=== PATIENT | female | born 1945 | race Caucasian/White ===

== ENCOUNTER 2018-02-05 14:58 | Inpatient (IN) ==
[2018-02-05] MEDS ORDERED: amLODIPine 5 MG TABLET PO SCH (18:00)
[2018-02-05] MEDS ORDERED: Lisinopril 20 MG TABLET PO SCH (18:00)
[2018-02-05] MEDS: *HR* Rivaroxaban 10 MG TABLET PO SCH (18:14)
[2018-02-05] MEDS: FLUoxetine 20 MG CAPSULE PO SCH (19:31)
[2018-02-05] MEDS: *HR* HYDROcodone/Acet 5/325 mg TABLET PO PRN (21:34)
[2018-02-06] MEDS: *HR* HYDROcodone/Acet 5/325 mg TABLET PO PRN ×3 (06:56→21:42)
[2018-02-06] MEDS: Cholecalciferol (D-3) 1,000 UNIT TABLET PO SCH (08:39)
--- NOTE | 2018-02-06 11:12 | Internal Med History&Physical ---
Date of Encounter: 02/06/18 Time of Encounter: 10:40 Assessment and Plan (1) Status post total hip replacement, right Current visit: No Status: Acute She will have physical therapy and occupational therapy evaluations with ongoing intervention. Xarelto has been prescribed for DVT prophylaxis. (2) CKD (chronic kidney disease) stage 3, GFR 30-59 ml/min Current visit: Yes Status: Chronic Hold ACEI and monitor renal indices. (3) Edema Current visit: Yes Status: Chronic Hold amlodipine and give low-dose diuretic. Qualifiers: Edema type: unspecified Qualified Code(s): R60.9 - Edema, unspecified (4) HTN (hypertension) Current visit: No Status: Chronic Hold ACEI and Norvasc as above. Continue Coreg. Qualifiers: Hypertension type: essential hypertension Qualified Code(s): I10 - Essential (primary) hypertension (5) Hypothyroid Current visit: No Status: Chronic Check TSH in a.m. Qualifiers: Hypothyroidism type: unspecified Qualified Code(s): E03.9 - Hypothyroidism , unspecified (6) Acute blood loss anemia Current visit: No Status: Acute Recheck labs in a.m. Internal Medicine - H&P: HPI Chief complaint: Hip replacement Admitted From: Hospital to Hospital Transfer Plans for Post Hospital Care: Home History of present illness: Ms. Dowling is a 73 year old female who underwent elective right total hip replacement with robotic assistance at [facility] 02/02/2018. Her postop course was remarkable for anemia requiring blood transfusion. She was transferred to [facility] swing bed for ongoing therapy and care needs prior to returning to independent living at home. Her orthopedic history is significant for previous bilateral rotator cuff surgeries (right 2, left 1) and bilateral foot surgeries. She has history of vitamin D deficiency. She denies gout or other bone joint or muscle disorders. Past Med Surg Social Fam HX - Past Medical History Medical history: non-contributory, hypertension, osteoporosis Psychiatric history: anxiety - Past Surgical History Surgical History: cholecystectomy, hip replacement, hysterectomy, other Additional surgical history: left foot- Toothpic injury - Social History Smoking Status: Never smoker Smokeless Tobacco Status: No Alcohol use: none Drug use: none - Family History Father Hx Family Endocrine Disorder: Yes Internal Medicine - H&P: Meds Amlodipine Besylate 10 mg PO QPM 05/21/16 [History] Benazepril HCl [Lotensin] 40 mg PO QPM 05/21/16 [History] Carvedilol 12.5 mg PO BID 05/21/16 [History] Ergocalciferol (VITAMIN D2) [Vitamin D2] 50,000 unit PO BECKER 05/21/16 [History] FLUoxetine HCl [Prozac] 20 mg PO HS 05/21/16 [History] Levothyroxine [Synthroid] 50 mcg PO DAILY 05/21/16 [History] HYDROcodone/Acet 5/325 mg [[place] 5-325 mg] 1 tab PO Q6H PRN 7 Days #28 tab 02/01 [Rx] Rivaroxaban [Xarelto] 10 mg PO DAILY 10 Days #10 tablet 02/01/18 [Rx] 3 Allergy/AdvReac Type Severity Reaction Status Date / Time aspirin Allergy Rash Verified 10/17/16 13:14 celecoxib [From Celebrex] Allergy Rash Verified 10/17/16 13:14 cephalexin [From Keflex] Allergy Rash Verified 10/17/16 13:14 ciprofloxacin [From Cipro] Allergy Hives Verified 10/17/16 13:14 clindamycin Allergy Rash Verified 02/02/18 10:26 meloxicam [From Mobic] Allergy Rash Verified 10/17/16 13:14 metronidazole [From Flagyl] Allergy Rash Verified 10/17/16 13:14 nabumetone [From Relafen] Allergy Rash Verified 10/17/16 13:14 Penicillins Allergy Rash Verified 10/17/16 13:14 Sulfa (Sulfonamide Allergy Rash Verified 10/17/16 13:14 Antibiotics) tramadol Allergy Rash Verified 02/02/18 10:27 Iodinated Contrast- Oral and AdvReac Flushing Verified 03/26/17 09:18 IV Dye meperidine [From Demerol] AdvReac Redness of Verified 10/17/16 13:14 Skin morphine AdvReac Redness of Verified 10/17/16 13:14 Skin Oxycodone [From OxyContin] AdvReac Itching Verified 10/17/16 13:14 All Systems PM: A 10-system review of systems was performed and is negative for pertinent findings except as documented above in the HPI. Review of systems: Gen.: She states her weight has increased slightly in the past few weeks Cardiovascular: She has history of hypertension but denies SC heart failure angina DVT or pulmonary embolus. She reports she has edema of her legs. Respiratory: She is a lifelong nonsmoker and has no known chronic lung disease. GI: She has had cholecystectomy. She denies disorders of her liver or exocrine pancreas : She has chronic kidney disease and follows with a qa auditor. She had kidney stones in the past on one occasion without recurrence. She denies other kidney or bladder disorders. Neurologic: She denies large distribution strokes or seizures. Endocrine: She has hypothyroidism and history of borderline hyperlipidemia. She denies diabetes. Hematology/oncology: She denies blood disorders or cancers. She had anemia postoperatively with blood transfusion as per above. Psychiatric: She has depression but denies anxiety other mental health issues [place] skeletal: As per history of present illness - Constitutional Vitals: Temp Pulse Resp BP Pulse Ox 98.4 F 68 15 127/69 94 02/06/18 06:51 02/06/18 06:51 02/06/18 06:51 02/06/18 06:51 02/06/18 06:51 Exam: Gen.: She is a well-developed overweight female resting comfortably in bed who appears in no acute distress HEENT: Head is atraumatic and normocephalic. Eyes: EOMI. There is no scleral icterus. Mouth: Mucosa is moist. Neck: There is no thyromegaly or adenopathy noted. Heart: Regular without murmurs gallops or ectopics Lungs: No wheezes or crackles are heard. Abdomen: Soft and nontender. No masses or guarding are noted. Extremities: She has 2+ edema of the left leg and 2-3+ edema of the right leg. A wedge abductor pillow is in place. She has DJD changes of her hands. Neurologic: Mental status: She is talkative and a good historian. Cranial nerves: Smile is symmetric. Forehead wrinkles bilaterally. Tongue protrudes midline. EOMI. Motor: There is no pronator drift. Cerebellar: Finger to nose is intact bilaterally. Skin: Warm and dry
[2018-02-06] MEDS: Bumetanide 1 MG TABLET PO SCH (15:48)
[2018-02-06] MEDS: *HR* Rivaroxaban 10 MG TABLET PO SCH (15:50)
[2018-02-06] MEDS: FLUoxetine 20 MG CAPSULE PO SCH (21:41)
[2018-02-07 05:42] LABS: Basophils % 0.4 %; Eosinophils # 0.2 K/mcL (0.0-0.6); Hematocrit 29.5 % (35.3-44.9); Hemoglobin 9.6 g/dL (11.5-15.4); Immature Granulocytes % 0.5 % (0-4); Lymphocytes # 1.7 K/mcL (0.6-4.6); Lymphocytes % 21.1 %; Mean Corpuscular HGB Conc 32.5 g/dL (31.6-35.5); Mean Corpuscular Hemoglobin 30.4 pg (28.0-33.3); Mean Corpuscular Volume 93.4 fL (83.0-100.0); Mean Platelet Volume 9.8 fL (9.4-12.4); Monocytes # 0.7 K/mcL (0.0-1.3); Monocytes % 8.1 %; Neutrophils # 5.4 K/mcL (1.6-8.9); Platelet Count 197 K/mcL (140-400); Red Blood Count 3.16 M/mcL (3.82-4.97); Red Cell Distribution Width 13.5 % (11.5-14.5); Segmented Neutrophils % 66.9 %
[2018-02-07 06:15] LABS: Thyroid Stimulating Hormone 1.637 mcIU/mL (0.340-5.600)
[2018-02-07] MEDS: Bumetanide 1 MG TABLET PO SCH (09:08)
[2018-02-07] MEDS: Cholecalciferol (D-3) 1,000 UNIT TABLET PO SCH (09:09)
[2018-02-07] MEDS: *HR* HYDROcodone/Acet 5/325 mg TABLET PO PRN ×2 (09:09→17:12)
[2018-02-07 09:55] LABS: Vitamin B12 266 pg/mL (250-1100)
[2018-02-07 10:26] LABS: Folate > 22.3 ng/mL (3.0-16.0)
[2018-02-07] MEDS: *HR* Rivaroxaban 10 MG TABLET PO SCH (17:05)
--- NOTE | 2018-02-07 19:49 | Internal Med Progress Note ---
Date of Encounter: 02/07/18 Time of Encounter: 19:40 - Assessment and plan (1) Status post total hip replacement, right Current Visit: No Status: Acute Assessment and plan: February 07. Continue PT and OT with Xarelto. (2) CKD (chronic kidney disease) stage 3, GFR 30-59 ml/min Current Visit: Yes Status: Chronic Assessment and plan: February 07. Hold ACEI and monitor renal indices. (3) Edema Current Visit: Yes Status: Chronic Assessment and plan: February 07. Hold amlodipine and continue low-dose diuretic. Qualifiers: Edema type: unspecified Qualified Code(s): R60.9 - Edema, unspecified (4) HTN (hypertension) Current Visit: No Status: Chronic Assessment and plan: February 07. Continue Coreg. Qualifiers: Hypertension type: essential hypertension Qualified Code(s): I10 - Essential (primary) hypertension (5) Hypothyroid Current Visit: No Status: Chronic Assessment and plan: February 07. TSH normal. Continue present dose Synthroid. Qualifiers: Hypothyroidism type: unspecified Qualified Code(s): E03.9 - Hypothyroidism , unspecified (6) Acute blood loss anemia Current Visit: No Status: Acute Assessment and plan: February 07. Anemia testing shows iron 18, transferrin saturation 8%, transferrin 166, ferritin 136, B12 266, and folate > 22.3. Start ferrous sulfate with vitamin C. - Subjective Interval history: February 07. She has no new complaints. She ambulated in the hallway earlier today. - Constitutional Vitals: Temp Pulse Resp BP Pulse Ox 99.1 F 76 18 156/65 95 02/07/18 19:04 02/07/18 19:04 02/07/18 19:04 02/07/18 19:04 02/07/18 19:04 Exam: She is resting comfortably in bed and appears in no acute distress. Her affect is bright and cheerful. Extremities show slightly less edema bilaterally than yesterday. I reviewed her medications and lab results. Internal Medicine: Result - Labs CBC & Chem 7: 02/07/18 04:39 Labs: Short CBC 02/07/18 Range/Units 04:39 WBC 8.0 (4.3-11.1) K/mcL Hgb 9.6 L (11.5-15.4) g/dL Hct 29.5 L (35.3-44.9) % Plt Count 197 (140-400) K/mcL Neutrophils # 5.4 (1.6-8.9) K/mcL Consult Discharge Plan - Plan Referrals: Katerine Canales CNP [Primary Care Provider] - 1 week
[2018-02-07] MEDS: FLUoxetine 20 MG CAPSULE PO SCH (21:39)
[2018-02-08] MEDS: Ascorbic Acid 500 MG TABLET PO SCH ×2 (06:45→08:20)
[2018-02-08] MEDS: *HR* HYDROcodone/Acet 5/325 mg TABLET PO PRN ×2 (06:45→17:31)
[2018-02-08] MEDS: Cholecalciferol (D-3) 1,000 UNIT TABLET PO SCH (08:20)
[2018-02-08] MEDS ORDERED: Bumetanide 1 MG TABLET PO SCH (09:00)
--- NOTE | 2018-02-08 14:08 | Internal Med Progress Note ---
Date of Encounter: 02/08/18 Time of Encounter: 14:00 - Assessment and plan (1) Status post total hip replacement, right Current Visit: No Status: Acute Assessment and plan: February 07. Continue PT and OT with Xarelto. (2) CKD (chronic kidney disease) stage 3, GFR 30-59 ml/min Current Visit: Yes Status: Chronic Assessment and plan: February 07. Hold ACEI and monitor renal indices. February 08. Check labs in a.m. (3) Edema Current Visit: Yes Status: Chronic Assessment and plan: February 07. Hold amlodipine and continue low-dose diuretic. February 08. Increase Bumex dose. Qualifiers: Edema type: unspecified Qualified Code(s): R60.9 - Edema, unspecified (4) HTN (hypertension) Current Visit: No Status: Chronic Assessment and plan: February 07. Continue Coreg. Qualifiers: Hypertension type: essential hypertension Qualified Code(s): I10 - Essential (primary) hypertension (5) Hypothyroid Current Visit: No Status: Chronic Assessment and plan: February 07. TSH normal. Continue present dose Synthroid. Qualifiers: Hypothyroidism type: unspecified Qualified Code(s): E03.9 - Hypothyroidism , unspecified (6) Acute blood loss anemia Current Visit: No Status: Acute Assessment and plan: February 07. Anemia testing shows iron 18, transferrin saturation 8%, transferrin 166, ferritin 136, B12 266, and folate > 22.3. Start ferrous sulfate with vitamin C. February 09. Check labs in a.m. - Subjective Interval history: February 07. She has no new complaints. She ambulated in the hallway earlier today. February 08. She has no new complaints. - Constitutional Vitals: Temp Pulse Resp BP Pulse Ox 99.6 F 68 15 136/69 94 02/08/18 07:30 02/08/18 07:30 02/08/18 07:30 02/08/18 07:30 02/08/18 07:30 Exam: She is resting comfortably in bed and appears in no acute distress. Her affect is bright and cheerful. Extremities show unchanged edema. I reviewed her medications and lab results. Internal Medicine: Result - Labs CBC & Chem 7: 02/07/18 04:39 Consult Discharge Plan - Plan Referrals: Katerine Canales HANDS ASSEMBLER [Primary Care Provider] - 1 week
[2018-02-08] MEDS: *HR* Rivaroxaban 10 MG TABLET PO SCH (17:31)
[2018-02-08] MEDS: Bumetanide 1 MG TABLET PO SCH (17:35)
[2018-02-08] MEDS: FLUoxetine 20 MG CAPSULE PO SCH (21:14)
[2018-02-09 06:57] LABS: Basophils % 0.4 %; Eosinophils # 0.3 K/mcL (0.0-0.6); Eosinophils % 3.9 %; Hematocrit 29.1 % (35.3-44.9); Hemoglobin 9.5 g/dL (11.5-15.4); Immature Granulocytes % 0.5 % (0-4); Lymphocytes # 2.1 K/mcL (0.6-4.6); Mean Corpuscular HGB Conc 32.6 g/dL (31.6-35.5); Mean Corpuscular Hemoglobin 30.5 pg (28.0-33.3); Mean Corpuscular Volume 93.6 fL (83.0-100.0); Mean Platelet Volume 9.6 fL (9.4-12.4); Monocytes # 0.6 K/mcL (0.0-1.3); Monocytes % 7.3 %; Platelet Count 237 K/mcL (140-400); Red Blood Count 3.11 M/mcL (3.82-4.97); Red Cell Distribution Width 13.2 % (11.5-14.5); Segmented Neutrophils % 61.9 %
[2018-02-09 07:18] LABS: Calcium 8.4 mg/dL (8.6-10.3); Potassium 4.1 mEq/L (3.5-5.1)
[2018-02-09] MEDS: Bumetanide 1 MG TABLET PO SCH (08:46)
[2018-02-09] MEDS: Ascorbic Acid 500 MG TABLET PO SCH (08:46)
[2018-02-09] MEDS: Cholecalciferol (D-3) 1,000 UNIT TABLET PO SCH (08:46)
[2018-02-09] MEDS: *HR* Rivaroxaban 10 MG TABLET PO SCH (17:37)
[2018-02-09] MEDS: FLUoxetine 20 MG CAPSULE PO SCH (21:18)
[2018-02-10] MEDS ORDERED: Ascorbic Acid 500 MG TABLET PO SCH (08:15)
[2018-02-10] MEDS: Bumetanide 1 MG TABLET PO SCH (09:34)
[2018-02-10] MEDS: Cholecalciferol (D-3) 1,000 UNIT TABLET PO SCH (09:34)
[2018-02-10] MEDS: Ascorbic Acid 500 MG TABLET PO SCH (09:34)
[2018-02-10] MEDS ORDERED: Artificial Tears SOLN 15 ML BOTTLE BOTH EYES PRN (11:56)
[2018-02-10] MEDS ORDERED: Acetaminophen 325 MG TABLET PO PRN (15:56)
[2018-02-10] MEDS: *HR* Rivaroxaban 10 MG TABLET PO SCH (18:08)
[2018-02-10] MEDS: FLUoxetine 20 MG CAPSULE PO SCH (20:01)
[2018-02-11] MEDS: Ascorbic Acid 500 MG TABLET PO SCH (05:49)
[2018-02-11] MEDS ORDERED: Ascorbic Acid 500 MG TABLET PO SCH (06:30)
[2018-02-11 06:31] LABS: Basophils % 0.5 %; Eosinophils # 0.3 K/mcL (0.0-0.6); Eosinophils % 3.5 %; Hematocrit 32.6 % (35.3-44.9); Hemoglobin 10.6 g/dL (11.5-15.4); Immature Granulocytes % 0.5 % (0-4); Lymphocytes # 2.4 K/mcL (0.6-4.6); Lymphocytes % 28.2 %; Mean Corpuscular HGB Conc 32.5 g/dL (31.6-35.5); Mean Corpuscular Volume 92.4 fL (83.0-100.0); Mean Platelet Volume 9.2 fL (9.4-12.4); Monocytes # 0.6 K/mcL (0.0-1.3); Monocytes % 7.3 %; Neutrophils # 5.2 K/mcL (1.6-8.9); Platelet Count 326 K/mcL (140-400); Red Blood Count 3.53 M/mcL (3.82-4.97); Red Cell Distribution Width 13.1 % (11.5-14.5)
[2018-02-11 06:52] LABS: Calcium 8.9 mg/dL (8.6-10.3); Magnesium 1.6 mg/dL (1.6-2.6); Potassium 3.8 mEq/L (3.5-5.1)
[2018-02-11 07:07] LABS: Bilirubin,Urine Negative (Negative); Blood,Urine Negative (Negative); Clarity,Urine Clear (Clear); Color,Urine Yellow (Yellow); Glucose,Urine (UA) Normal (Normal); Ketones,Urine Negative (Negative); Leukocyte Esterase,Urine Negative (Negative); Nitrite,Urine Negative (Negative); PH,Urine 5.5 pH Units (5.0-8.0); Protein,Urine Negative (Neg-Trace); Specific Gravity,Urine 1.015 (1.010-1.025); Urobilinogen,Urine Normal (Normal)
[2018-02-11] MEDS: Cholecalciferol (D-3) 1,000 UNIT TABLET PO SCH (09:22)
[2018-02-11] MEDS: Bumetanide 1 MG TABLET PO SCH (09:22)
[2018-02-11] MEDS: *HR* Rivaroxaban 10 MG TABLET PO SCH (17:57)
[2018-02-11] MEDS: *HR* HYDROcodone/Acet 5/325 mg TABLET PO PRN (17:58)
[2018-02-11] MEDS: FLUoxetine 20 MG CAPSULE PO SCH (20:48)
[2018-02-12] MEDS: Ascorbic Acid 500 MG TABLET PO SCH (06:01)
[2018-02-12] MEDS: Bumetanide 1 MG TABLET PO SCH (08:28)
[2018-02-12] MEDS: *HR* HYDROcodone/Acet 5/325 mg TABLET PO PRN (08:28)
[2018-02-12] MEDS: Cholecalciferol (D-3) 1,000 UNIT TABLET PO SCH (08:28)
--- NOTE | 2018-02-12 11:42 | Internal Med Progress Note ---
Date of Encounter: 02/12/18 Time of Encounter: 11:35 - Assessment and plan (1) Status post total hip replacement, right Current Visit: No Status: Acute Assessment and plan: February 07. Continue PT and OT with Xarelto. February 12. Anticipate discharge home tomorrow. (2) CKD (chronic kidney disease) stage 3, GFR 30-59 ml/min Current Visit: Yes Status: Chronic Assessment and plan: February 07. Hold ACEI and monitor renal indices. February 08. Check labs in a.m. February 12. Creatinine stable at 1.32 yesterday. (3) Edema Current Visit: Yes Status: Chronic Assessment and plan: February 07. Hold amlodipine and continue low-dose diuretic. February 08. Increase Bumex dose. February 12. Continue present dose Bumex and Coreg. Qualifiers: Edema type: unspecified Qualified Code(s): R60.9 - Edema, unspecified (4) HTN (hypertension) Current Visit: No Status: Chronic Assessment and plan: February 07. Continue Coreg. Qualifiers: Hypertension type: essential hypertension Qualified Code(s): I10 - Essential (primary) hypertension (5) Hypothyroid Current Visit: No Status: Chronic Assessment and plan: February 07. TSH normal. Continue present dose Synthroid. Qualifiers: Hypothyroidism type: unspecified Qualified Code(s): E03.9 - Hypothyroidism , unspecified (6) Acute blood loss anemia Current Visit: No Status: Acute Assessment and plan: February 07. Anemia testing shows iron 18, transferrin saturation 8%, transferrin 166, ferritin 136, B12 266, and folate > 22.3. Start ferrous sulfate with vitamin C. February 08. Check labs in a.m. February 12. Hemoglobin improved to 10.6 on February 11. - Subjective Interval history: February 07. She has no new complaints. She ambulated in the hallway earlier today. February 08. She has no new complaints. February 12. She has no new complaints and feels well. - Constitutional Vitals: Temp Pulse Resp BP Pulse Ox 98.7 F 61 14 145/72 96 02/12/18 06:59 02/12/18 06:59 02/12/18 06:59 02/12/18 06:59 02/12/18 08:25 Exam: She is resting comfortably in bed and appears in no acute distress. Her affect is cheerful. Edema show significant decrease in her legs. I note her weight has decreased to 104.236 kg from admission weight of 112.491. I reviewed her medications and lab results. Internal Medicine: Result - Labs CBC & Chem 7: 02/11/18 06:04 02/11/18 06:04 Consult Discharge Plan - Plan Referrals: Katerine Canales, SHRUB PLANTER [Primary Care Provider] - 1 week
[2018-02-12] MEDS: FLUoxetine 20 MG CAPSULE PO SCH (21:21)
[2018-02-13] MEDS: Ascorbic Acid 500 MG TABLET PO SCH (06:10)
[2018-02-13 06:27] VITALS: BP 150/94
[2018-02-13] MEDS: Bumetanide 1 MG TABLET PO SCH (07:49)
[2018-02-13] MEDS: Cholecalciferol (D-3) 1,000 UNIT TABLET PO SCH (07:49)
--- NOTE | 2018-02-13 09:26 | Discharge Summary ---
Date of Encounter: 02/13/18 Time of Encounter: 09:10 - Discharge Diagnosis (1) Status post total hip replacement, right Priority: Primary Status: Acute (2) CKD (chronic kidney disease) stage 3, GFR 30-59 ml/min Priority: Secondary Status: Chronic (3) Edema Priority: Secondary Status: Chronic Qualifiers: Edema type: unspecified Qualified Code(s): R60.9 - Edema, unspecified (4) HTN (hypertension) Priority: Secondary Status: Chronic Qualifiers: Hypertension type: essential hypertension Qualified Code(s): I10 - Essential (primary) hypertension (5) Hypothyroid Priority: Secondary Status: Chronic Qualifiers: Hypothyroidism type: unspecified Qualified Code(s): E03.9 - Hypothyroidism , unspecified (6) Acute blood loss anemia Priority: Secondary Status: Acute Hospital course: Ms. Dowling is a 73 year old female who underwent elective right total hip replacement with robotic assistance at [facility] 02/02/2018. Her postop course was remarkable for anemia requiring blood transfusion. She was transferred to [facility] swing bed for ongoing therapy and care needs prior to returning to independent living at home. Initial orders were written by the discharging physicians at [facility]. I saw her on February 06 and performed the swing bed history and physical. She had physical therapy and occupational therapy evaluations with ongoing intervention. Xarelto was used for DVT prophylaxis. She made satisfactory progress and was stable for discharge on February 13. She will follow with her orthopedist as directed. Amlodipine was discontinued and she was given Bumex. She had significant diuresis with weight decreasing from 112.491 kg on admission to 101.775 kg at discharge. She will remain off amlodipine and be given low-dose Bumex for an additional 7 days. Her PCP can determine if additional Bumex as needed. Anemia testing showed iron 18, transferrin saturation 8%, transferrin 166, ferritin 136, B12 266, and folate> 22.3. She was started on ferrous sulfate with vitamin C and these will be continued at discharge. On February 13 she was stable for discharge home. She will follow with her PCP Katerine Canales CNP within 1 week. She will follow with her orthopedist as directed. - Time Spent with Patient Total time spent providing and/or coordinating discharge services: - Discharge Medications Prescriptions: Ascorbic Acid [Vitamin C] 500 mg PO DAILY #30 tablet Bumetanide [Bumex] 1 mg PO DAILY #7 tablet Ferrous Sulfate 325 mg PO DAILY #30 tablet Home Medications: Benazepril HCl [Lotensin] 40 mg PO QPM 05/21/16 [History] Carvedilol 12.5 mg PO BID 05/21/16 [History] Ergocalciferol (VITAMIN D2) [Vitamin D2] 50,000 unit PO BECKER 05/21/16 [History] FLUoxetine HCl [Prozac] 20 mg PO HS 05/21/16 [History] Levothyroxine [Synthroid] 50 mcg PO DAILY 05/21/16 [History] HYDROcodone/Acet 5/325 mg [[place] 5-325 mg] 1 tab PO Q6H PRN 7 Days #28 tab 02/01 [Rx] Rivaroxaban [Xarelto] 10 mg PO DAILY 10 Days #10 tablet 02/01/18 [Rx] Ascorbic Acid [Vitamin C] 500 mg PO DAILY #30 tablet 02/13/18 [Rx] Bumetanide [Bumex] 1 mg PO DAILY #7 tablet 02/13/18 [Rx] Ferrous Sulfate 325 mg PO DAILY #30 tablet 02/13/18 [Rx] Allergies/Adverse Reactions: 3 Allergy/AdvReac Type Severity Reaction Status Date / Time aspirin Allergy Rash Verified 10/17/16 13:14 celecoxib [From Celebrex] Allergy Rash Verified 10/17/16 13:14 cephalexin [From Keflex] Allergy Rash Verified 10/17/16 13:14 ciprofloxacin [From Cipro] Allergy Hives Verified 10/17/16 13:14 clindamycin Allergy Rash Verified 02/02/18 10:26 meloxicam [From Mobic] Allergy Rash Verified 10/17/16 13:14 metronidazole [From Flagyl] Allergy Rash Verified 10/17/16 13:14 nabumetone [From Relafen] Allergy Rash Verified 10/17/16 13:14 Penicillins Allergy Rash Verified 10/17/16 13:14 Sulfa (Sulfonamide Allergy Rash Verified 10/17/16 13:14 Antibiotics) tramadol Allergy Rash Verified 02/02/18 10:27 Iodinated Contrast- Oral and AdvReac Flushing Verified 03/26/17 09:18 IV Dye meperidine [From Demerol] AdvReac Redness of Verified 10/17/16 13:14 Skin morphine AdvReac Redness of Verified 10/17/16 13:14 Skin Oxycodone [From OxyContin] AdvReac Itching Verified 10/17/16 13:14 Date of admission: 02/05/18 15:02 Primary care physician: CAM Mascorro Consults: 02/05/18 15:43 Consult to Physical Therapy [CONS] Routine Comment: Evaluate, develop and implement POC Reason for Consult: Right total hip replacement Does patient have active BEDREST order?: No Is patient medically & hemodynamically stable?: Yes 02/05/18 15:44 Consult to Occupational Therapy [CONS] Routine Comment: Evaluate, develop and implement POC Reason for Consult: Right hip replacement Does patient have active BEDREST order?: No Is patient medically & hemodynamically stable?: Yes - Constitutional Vitals: Temp Pulse Resp BP Pulse Ox 98.4 F 54 14 150/94 96 02/13/18 06:27 02/13/18 06:27 02/13/18 06:27 02/13/18 06:27 02/13/18 08:09 - Patient Status Disposition: Home Health Service - Discharge Instructions Follow Up With: Katerine Canales, THERAPIST RADIATION [Primary Care Provider] - 1 week - Diet and Activity Activity: as per physical therapy Diet: advance to your usual diet
--- NOTE | 2018-02-13 09:36 | Physician Discharge Referral ---
Home Health/Hosp Referral Info Transfer to: Home Health Attending Provider: Darryl Provider in Charge Post Discharge: PCP Bhavik) - Diagnosis (1) Status post total hip replacement, right Priority: Primary Status: Acute (2) CKD (chronic kidney disease) stage 3, GFR 30-59 ml/min Priority: Secondary Status: Chronic (3) Edema Priority: Secondary Status: Chronic (4) HTN (hypertension) Priority: Secondary Status: Chronic (5) Hypothyroid Priority: Secondary Status: Chronic (6) Acute blood loss anemia Priority: Secondary Status: Acute - Respiratory Orders Smoking Cessation: Smoking cessation has been advised. For more information, call the [place] Tobacco Quit Line at 8-602-YWOY-NOW. - Activity Activity Orders: Walker - Services Needed Following services are medically necessary services: Nursing, Home Health Aide, Physical Therapy, Occupational Therapy - Transfer Medications Prescriptions: Ascorbic Acid [Vitamin C] 500 mg PO DAILY #30 tablet Bumetanide [Bumex] 1 mg PO DAILY #7 tablet Ferrous Sulfate 325 mg PO DAILY #30 tablet Home Medications: Benazepril HCl [Lotensin] 40 mg PO QPM 05/21/16 [History] Carvedilol 12.5 mg PO BID 05/21/16 [History] Ergocalciferol (VITAMIN D2) [Vitamin D2] 50,000 unit PO BECKER 05/21/16 [History] FLUoxetine HCl [Prozac] 20 mg PO HS 05/21/16 [History] Levothyroxine [Synthroid] 50 mcg PO DAILY 05/21/16 [History] HYDROcodone/Acet 5/325 mg [[place] 5-325 mg] 1 tab PO Q6H PRN 7 Days #28 tab 02/01 [Rx] Rivaroxaban [Xarelto] 10 mg PO DAILY 10 Days #10 tablet 02/01/18 [Rx] Ascorbic Acid [Vitamin C] 500 mg PO DAILY #30 tablet 02/13/18 [Rx] Bumetanide [Bumex] 1 mg PO DAILY #7 tablet 02/13/18 [Rx] Ferrous Sulfate 325 mg PO DAILY #30 tablet 02/13/18 [Rx] Allergies/Adverse Reactions: 3 Allergy/AdvReac Type Severity Reaction Status Date / Time aspirin Allergy Rash Verified 10/17/16 13:14 celecoxib [From Celebrex] Allergy Rash Verified 10/17/16 13:14 cephalexin [From Keflex] Allergy Rash Verified 10/17/16 13:14 ciprofloxacin [From Cipro] Allergy Hives Verified 10/17/16 13:14 clindamycin Allergy Rash Verified 02/02/18 10:26 meloxicam [From Mobic] Allergy Rash Verified 10/17/16 13:14 metronidazole [From Flagyl] Allergy Rash Verified 10/17/16 13:14 nabumetone [From Relafen] Allergy Rash Verified 10/17/16 13:14 Penicillins Allergy Rash Verified 10/17/16 13:14 Sulfa (Sulfonamide Allergy Rash Verified 10/17/16 13:14 Antibiotics) tramadol Allergy Rash Verified 02/02/18 10:27 Iodinated Contrast- Oral and AdvReac Flushing Verified 03/26/17 09:18 IV Dye meperidine [From Demerol] AdvReac Redness of Verified 10/17/16 13:14 Skin morphine AdvReac Redness of Verified 10/17/16 13:14 Skin Oxycodone [From OxyContin] AdvReac Itching Verified 10/17/16 13:14 Certification: Further, I certify that my clinical findings support that this patient is homebound (i.e. absences from home require considerable and taxing effort and are for medical reasons or congregational services or infrequently or short duration when for other reasons) because: Homebound Reason: Leaving home requires considerable and taxing effort due to condition (Impaired mobility secondary to total hip replacement.) Attestation: My signature below is to certify that this patient is under my care and that I, or nurse practitioner, or a physician's certified nursing assistant instructor working with me, has a face-to -face encounter with this patient.
== END 2018-02-13 12:10 | disposition home health service (06) | DRG 560 ==
LOC: INPPIK 15:02
PROVIDERS: ADMIT Internal Medicine; ATTEND Internal Medicine